=== PATIENT | male | born 1955 | race Caucasian/White ===

== ENCOUNTER 2021-09-01 13:00 | Emergency (ER) | payer MEDICARE, OTHER ==
[2021-09-01] MEDS ORDERED: cefTRIAXone 1 GM Vial IM ONE (13:22)
[2021-09-01] MEDS ORDERED: Take Home: Amoxicillin/Clavulanate K 875-125 MG Tab, 2 Tab Pack PO ONE (13:23)
[2021-09-01] MEDS ORDERED: Ciprofloxacin 0.3% Ophth Soln 5 ML Bottle EYEBOTH SCH (13:30)
--- NOTE | 2021-09-01 13:38 | EDM.PDOC ---
ED HPI GENERAL MEDICAL PROBLEM - General Chief Complaint: General Stated Complaint: sinus infection Time Seen by Provider: 09/01/21 13:15 Source of Information: Reports: Patient - History of Present Illness INITIAL COMMENTS - FREE TEXT/NARRATIVE: This is a 65-year-old male patient that is presented to the emergency department for possible sinus infection. Patient began having symptoms about a week ago. Symptoms have worsened over the last couple days. States that he is very congested with head pressure. Reports postnasal drainage going down into his throat. Also reports red eyes that have been mattered shut at times during the night. States eyes have been red for the last few days. Patient does have an occasional cough. Denied chills, shortness of breath, or body aches. Patient has had some chronic neck pain but he has been using ibuprofen with some relief and reports he has been following up with his primary care provider to manage this. - Related Data Allergies Allergy/AdvReac Type Severity Reaction Status Date / Time No Known Allergies Allergy Verified 09/01/21 13:03 Home Meds: Home Meds Amoxicillin/Potassium Clav [Augmentin 875-125 Tablet] 1 each PO BID 7 Days #14 tablet 09/01/21 [Rx] Potassium Chloride 20 meq PO DAILY 09/01/21 [History] Ramipril 20 mg PO DAILY 09/01/21 [History] amLODIPine Besylate [Amlodipine Besylate] 10 mg PO DAILY 09/01/21 [History] hydroCHLOROthiazide [Hydrochlorothiazide] 25 mg PO DAILY 09/01/21 [History] Social & Family History - Family History Family Medical History: No Pertinent Family History - Tobacco Use Tobacco Use Status *Q: Never Tobacco User Second Hand Smoke Exposure: No ED ROS GENERAL - Review of Systems Review Of Systems: Comprehensive ROS is negative, except as noted in HPI. ED EXAM, GENERAL - Physical Exam Exam: See Below Exam Limited By: No Limitations General Appearance: Alert, WD/WN, Mild Distress Eye Exam: Bilateral Eye: Other (Bilateral erythema and exudate) Ears: Normal External Exam, Hearing Grossly Normal, Normal TMs Nose: Normal Inspection, Normal Mucosa Throat/Mouth: Normal Inspection, Normal Lips, Normal Voice, No Airway Compromise Head: Atraumatic, Facial Tenderness, Sinus Tenderness Neck: Normal Inspection, Supple Respiratory/Chest: No Respiratory Distress, Lungs Clear Cardiovascular: Normal Peripheral Pulses, Regular Rate, Rhythm, No Edema, No Gallop, No Murmur, No Rub GI/Abdominal: Normal Bowel Sounds, Soft, Non-Tender (Male) Exam: Deferred Rectal (Males) Exam: Deferred Back Exam: Normal Inspection Extremities: Normal Inspection, Normal Range of Motion Neurological: Alert, Oriented, Normal Cognition Psychiatric: Normal Affect, Normal Mood Skin Exam: Warm, Dry, Intact, Normal Color Lymphatic: No Adenopathy Course - Vital Signs Last Recorded V/S: Last Vital Signs Temp 102.4 F H 09/01/21 13:06 Pulse 98 09/01/21 13:06 Resp 18 09/01/21 13:06 BP 160/83 H 09/01/21 13:06 Pulse Ox 96 09/01/21 13:06 - Orders/Labs/Meds Orders: Active Orders 24 hr Category Date Time Status Ciprofloxacin [Ciloxan 0.3% Ophth Soln] Med 09/01/21 13:30 Ordered 1 ml EYEBOTH Q4H Isolation [COMM] Routine Oth 09/01/21 12:19 Active Medication Orders Ciprofloxacin (Ciprofloxacin 0.3% Ophth Soln 5 Ml Bottle) 1 ml EYEBOTH Q4H DANA Labs: Laboratory Tests 09/01/21 Range/Units 13:00 SARS CoV-2 RNA Rapid MARGARITA Negative (NEGATIVE) Meds: Medications Generic Name Dose Route Start Last Admin Trade Name Freq PRN Reason Stop Dose Admin Ciprofloxacin 1 ml 09/01/21 13:30 Ciprofloxacin 0.3% Ophth Soln 5 Ml Bottle EYEBOTH Q4H DANA Discontinued Medications Generic Name Dose Route Start Last Admin Trade Name Freq PRN Reason Stop Dose Admin Amoxicillin/Clavulanate Potassium 1 packet 09/01/21 13:23 Take Home: Amoxicillin/Clavulanate K 875-125 Mg Tab, 2 Tab Pack PO 09/01/21 13:24 ONETIME ONE Ceftriaxone Sodium 1 gm 09/01/21 13:22 09/01/21 13:28 Ceftriaxone 1 Gm Vial IM 09/01/21 13:23 1 gm ONETIME ONE Administration - Re-Assessments/Exams Free Text/Narrative Re-Assessment/Exam: This is a 65-year-old male patient that presented to the emergency department for possible sinus infection. Patient with temperature of greater than 100 in the emergency room. Covid and influenza specimens obtained and both were negative. Patient with sinus tenderness, congestion, postnasal drip, bilateral scleral erythema with exudate. He has had a history of sinus infection in the past. Plan to treat sinus infection and bacterial conjunctivitis. Was administered 1 g Rocephin in the emergency room today. Will send home 2 tablets of Augmentin to be taken twice a day with the remainder to be filled at his pharmacy. Ciprofloxacin drops 1 to 2 drops every 2 hours for the first 2 days then every 4 hours for an additional 5 days to treat bacterial conjunctivitis. Patient may use Tylenol and ibuprofen for fever or discomfort. Encourage patient to drink plenty of fluids and stay hydrated. If symptoms are not improving by middle of the week he should be following up with his primary care provider. Patient should call or return if symptoms are worsening or if he has any questions. Departure - Departure Time of Disposition: 13:32 Disposition: Home, Self-Care 01 Condition: Fair Clinical Impression: Acute bacterial sinusitis, Conjunctivitis, bacterial - Discharge Information *PRESCRIPTION DRUG MONITORING PROGRAM REVIEWED*: Not Applicable *COPY OF PRESCRIPTION DRUG MONITORING REPORT IN PATIENT SUDHA: Not Applicable Prescriptions: Amoxicillin/Potassium Clav [Augmentin 875-125 Tablet] 1 each PO BID 7 Days #14 tablet Instructions: Bacterial Conjunctivitis, Adult, Sinusitis, Adult Additional Instructions: 1. Rocephin administered in the emergency department today. 2. Augmentin prescribed and will send home 2 tablets for tomorrow if you are unable to make it to the pharmacy due to other. 3. Prescription sent to the pharmacy for Augmentin and you should continue that for 7 days. 4. Ciprofloxacin drops dispensed in the ER today. Use every 2 hours while awake 1 to 2 drops in each eye for 2 days and after 2 days put 1 to 2 drops in each eye for another 5 days. 5. May use Tylenol and alternate with ibuprofen for fever or pain. 6. If symptoms are not improving by the middle of the week call the clinic to be reevaluated. 7. Stay hydrated by drinking plenty of fluids. 8. Call or return for worsening symptoms or if you have any questions. Sepsis Event Note (ED) - Evaluation Sepsis Screening Result: No Definite Risk - Focused Exam Vital Signs: Vital Signs Temp Pulse Resp BP Pulse Ox 09/01/21 13:06 102.4 F H 98 18 160/83 H 96 - My Orders Last 24 Hours: My Active Orders 09/01/21 12:19 Isolation [COMM] Routine 09/01/21 13:30 Ciprofloxacin [Ciloxan 0.3% Ophth Soln] 1 ml EYEBOTH Q4H - Assessment/Plan Last 24 Hours: My Active Orders 09/01/21 12:19 Isolation [COMM] Routine 09/01/21 13:30 Ciprofloxacin [Ciloxan 0.3% Ophth Soln] 1 ml EYEBOTH Q4H
== END 2021-09-01 14:00 | disposition home or self-care (01) ==
LOC: CC.ED 13:00
DX: J01.90 Acute sinusitis, unspecified (principal); H10.023 Other mucopurulent conjunctivitis, bilateral; B96.89 Other specified bacterial agents as the cause of diseases classified elsewhere; Z20.822 Contact with and (suspected) exposure to COVID-19; Z79.899 Other long term (current) drug therapy
CPT/HCPCS: 87804; 96372; 99283; A9270; J0696; U0002